=== PATIENT | male | born 1965 ===

== ENCOUNTER 2024-01-15 06:18 | Day surgery (SDC) | payer OTHER, SELFPAY ==
[2024-01-12 13:20] VITALS: BMI 32.8
[2024-01-12 13:45] LABS: Hemoglobin 15.6 g/dL (13.0-18.0); Mean Corp Hgb Conc. 35.5 g/dL (33.0-37.0); Mean Corpuscular Hgb 29.7 pg (27.0-31.0); Mean Corpuscular Volume 83.8 fL (80.0-94.0); Mean Platelet Volume 9.6 fL (7.4-10.4); Platelet Count 199 10^3/uL (130-400); Red Blood Cell Count 5.25 10^6/uL (4.70-6.10); Red Cell Dist. Width 12.7 % (11.5-14.5); White Blood Cell Count 6.7 10^3/uL (4.8-10.8)
--- NOTE | 2024-01-13 15:44 | PTCARENOTE ---
Dr. Altamirano evaluated patients 3/4 abnormal EKG- no additional interventions required
[2024-01-15] VITALS (9 sets, daily range): BP systolic 114–162; BP diastolic 62–94; BMI 32.8
[2024-01-15] MEDS: TYLENOL 1000 MG PO (09:39)
[2024-01-15] MEDS: NORMOSOL-R 1000 IV (09:39)
[2024-01-15] MEDS: SUBLIMAZE 25 MCG IV (11:36)
[2024-01-15] MEDS: SUBLIMAZE 50 MCG IV (11:51)
[2024-01-15] MEDS: ROXICODONE 5 MG PO (13:26)
== END 2024-01-15 13:55 | disposition home or self-care (01) ==
LOC: SDS 06:18
PROVIDERS: ATTENDING PHYSICIAN Otolaryngology Facial Plastic Surgery; FAMILY PHYSICIAN Internal Medicine
DX: J34.2 Deviated nasal septum (principal); J34.3 Hypertrophy of nasal turbinates
CPT/HCPCS: 30140; 30520; 88300; 36415; 85027; 93005